=== PATIENT | male | born 1935 | race African-American/Black ===

== ENCOUNTER 2017-09-16 11:26 | Inpatient (IN) | payer SELFPAY ==
[~2017-09-16] VITALS: Ht 182.9 cm; Wt 73.0 kg
[2017-09-16 12:08] LABS: BASOPHILS % 0.4 % (0.0-2.0); EOSINOPHILS % 1.1 % (0.0-5.0); HEMATOCRIT. 43.5 % (42.0-52.0); HEMOGLOBIN. 14.8 g/dL (14.0-18.0); LYMPHOCYTES % 25.2 % (20.0-50.0); MEAN CORPUSCULAR HEMOGLOBIN 28.5 pg (28.0-32.0); MEAN CORPUSCULAR VOLUME 83.8 fL (80.0-94.0); MEAN PLATELET VOLUME 8.6 fl (7.4-10.4); NEUTROPHILS % 63.3 % (40.0-76.0); PLATELET 237 x1000/uL (130-400); RED BLOOD CELL COUNT 5.19 mill/uL (4.7-6.1); RED CELL DISTRIBUTION WIDTH 13.3 % (11.6-14.6)
[2017-09-16 12:12] LABS: CHLORIDE 100 mEq/L (98-107)
[2017-09-16 12:16] LABS: INR 1.1; PARTIAL THROMBOPLASTIN TIME 28.6 sec (23.4-31.0)
[2017-09-16 14:49] LABS: CLARITY URINE CLEAR (CLEAR); COLOR URINE YELLOW (YELLOW); KETONES URINE NEGATIVE (NEGATIVE); LEUKOCYTE ESTERASE URINE NEGATIVE (NEGATIVE); NITRITE URINE NEGATIVE (NEGATIVE); OCCULT BLOOD URINE NEGATIVE (NEGATIVE); PROTEIN URINE NEGATIVE (NEGATIVE); SPECIFIC GRAVITY URINE 1.011 (1.005-1.030); UROBILINOGEN URINE 0.2 E.U./dL (0.2-1.0)
[2017-09-16] MEDS ORDERED: ASPIRIN 325MG TABLET PO ONE (15:00)
[2017-09-16] MEDS ORDERED: KETOROLAC 15MG/ML VIAL IV ONE (18:00)
[2017-09-16] MEDS ORDERED: DOCUSATE SODIUM 100MG CAPSULE PO PRN (22:30)
[2017-09-16] MEDS ORDERED: DIPHENHYDRAMINE 50MG/ML VIAL IV PRN (22:30)
[2017-09-16] MEDS ORDERED: IPRATROPIUM/ALBUTEROL 0.5-3(2.5)MG/3ML NEB INH PRN (22:30)
[2017-09-16] MEDS ORDERED: ONDANSETRON HCL 4MG/2ML VIAL IV PRN (22:30)
[2017-09-16] MEDS ORDERED: ACETAMINOPHEN 650MG/20.3ML UDC GT PRN (22:30)
[2017-09-16] MEDS ORDERED: ACETAMINOPHEN 650MG SUPP PR PRN (22:30)
[2017-09-16] MEDS ORDERED: ACETAMINOPHEN 325MG TABLET PO PRN (22:30)
[2017-09-16] MEDS ORDERED: GUAIFENESIN 200MG/10ML SUGAR FREE UDC PO PRN (22:30)
[2017-09-16] MEDS ORDERED: MAGNESIUM/ALUMINUM HYDROXIDE/SIMETHICONE 30ML UDC PO PRN (22:30)
[2017-09-16] MEDS ORDERED: CLONIDINE 0.1MG TABLET PO PRN (22:30)
[2017-09-16] MEDS ORDERED: HYDROCODONE/ACETAMINOPHEN 5/325MG TABLET PO PRN (22:30)
[2017-09-16] MEDS ORDERED: DEXTROSE 50% WATER 50ML SYRINGE IV PRN (22:30)
[2017-09-16] MEDS ORDERED: NA PHOS,M-B/NA PHOS,DI-BA ENEMA 118ML PR PRN (22:30)
[2017-09-16] MEDS ORDERED: BLOOD SUGAR DIAGNOSTIC STRIP TEST NR (22:53)
[2017-09-16] MEDS ORDERED: INSULIN LISPRO 100 UNITS/ML SUBCUT NR (22:53)
[2017-09-17] VITALS: BP 119/77
[2017-09-17 04:00] VITALS: BP 139/86
[2017-09-17] MEDS: SODIUM CHLORIDE 0.9% 1,000 ML IV SCH (04:10)
[2017-09-17] MEDS: SODIUM CHLORIDE 0.9% INJ 3ML FLUSH IVF SCH ×3 (05:59→21:25)
[2017-09-17] MEDS: BLOOD SUGAR DIAGNOSTIC STRIP TEST SCH ×4 (06:02→21:25)
[2017-09-17] MEDS: INSULIN LISPRO 100 UNITS/ML SUBCUT SCH ×4 (06:06→21:25)
[2017-09-17 06:39] LABS: BASOPHILS % 0.5 % (0.0-2.0); EOSINOPHILS % 2.7 % (0.0-5.0); HEMATOCRIT. 42.6 % (42.0-52.0); HEMOGLOBIN. 14.3 g/dL (14.0-18.0); MEAN CORPUSCULAR HEMOGLOBIN 28.3 pg (28.0-32.0); MEAN CORPUSCULAR VOLUME 84.1 fL (80.0-94.0); MEAN PLATELET VOLUME 9.1 fl (7.4-10.4); MONOCYTES % 9.9 % (2.0-8.0); NEUTROPHILS % 57.9 % (40.0-76.0); PLATELET 248 x1000/uL (130-400); RED BLOOD CELL COUNT 5.06 mill/uL (4.7-6.1)
[2017-09-17 07:41] LABS: CHLORIDE 105 mEq/L (98-107)
[2017-09-17 07:52] LABS: LDL CHOLESTEROL 101 mg/dL (5-100)
[2017-09-17 07:53] LABS: CREATINE KINASE 148 IU/L (39-308); HDL CHOLESTEROL 47 mg/dL (40-59)
[2017-09-17 07:57] LABS: CREATINE KINASE MB FRACTION 1.5 ng/mL (0.5-3.6)
[2017-09-17 08:00] VITALS: BP 157/91
[2017-09-17] MEDS: ENOXAPARIN 40MG/0.4ML SYR SUBCUT SCH (09:29)
[2017-09-17] MEDS ORDERED: TAMS-11 PO (10:18)
[2017-09-17] MEDS ORDERED: METF100092 MT (10:18)
[2017-09-17] MEDS ORDERED: LISI2.5T47 MT (10:18)
[2017-09-17 12:00] VITALS: BP 149/81
[2017-09-17 14:13] LABS: CLARITY URINE CLEAR (CLEAR); COLOR URINE YELLOW (YELLOW); KETONES URINE NEGATIVE (NEGATIVE); LEUKOCYTE ESTERASE URINE NEGATIVE (NEGATIVE); NITRITE URINE NEGATIVE (NEGATIVE); OCCULT BLOOD URINE NEGATIVE (NEGATIVE); PH URINE 5.5 (4.5-8.0); PROTEIN URINE NEGATIVE (NEGATIVE); SPECIFIC GRAVITY URINE 1.016 (1.005-1.030); UROBILINOGEN URINE 0.2 E.U./dL (0.2-1.0)
[2017-09-17 14:39] LABS: METHADONE URINE SCREEN NEGATIVE (NEGATIVE); OPIATES URINE SCREEN NEGATIVE (NEGATIVE); PHENCYCLIDINE URINE SCREEN NEGATIVE (NEGATIVE)
[2017-09-17 14:40] LABS: *AMPHETAMINES SCREEN URINE NEGATIVE (NEGATIVE); *BARBITURATES SCREEN URINE NEGATIVE (NEGATIVE); *BENZODIAZEPINES SCREEN URINE NEGATIVE (NEGATIVE); *COCAINE SCREEN URINE NEGATIVE (NEGATIVE); CANNABINOID URINE SCREEN NEGATIVE (NEGATIVE)
[2017-09-17] MEDS ORDERED: CLOPIDOGREL 75MG TABLET PO NR (14:45)
[2017-09-17 16:00] VITALS: BP 160/100
[2017-09-17] MEDS ORDERED: TAMSULOSIN HCL 0.4MG SR CAPSULE PO NR (16:00)
[2017-09-17 16:01] LABS: CREATINE KINASE 165 IU/L (39-308)
[2017-09-17 16:02] LABS: CREATINE KINASE MB FRACTION 1.9 ng/mL (0.5-3.6)
[2017-09-17] MEDS ORDERED: MORPHINE SULFATE 4 MG/ML CPJ (NOT FOR IM USE) IV NR (18:00)
[2017-09-17 20:00] VITALS: BP 112/55
[2017-09-17] MEDS ORDERED: ATORVASTATIN CALCIUM 10MG TABLET PO SCH ×2 (21:00)
[2017-09-18] VITALS: BP 139/89
[2017-09-18 04:00] VITALS: BP 138/70
[2017-09-18] MEDS: SODIUM CHLORIDE 0.9% INJ 3ML FLUSH IVF SCH ×2 (05:07→14:00)
[2017-09-18] MEDS: BLOOD SUGAR DIAGNOSTIC STRIP TEST SCH ×3 (06:16→17:10)
[2017-09-18] MEDS: INSULIN LISPRO 100 UNITS/ML SUBCUT SCH ×3 (06:21→17:40)
[2017-09-18 08:00] VITALS: BP 118/63
[2017-09-18] MEDS: SODIUM CHLORIDE 0.9% 1,000 ML IV SCH (08:33)
[2017-09-18] MEDS: METFORMIN HCL 500MG TABLET PO SCH ×2 (08:35→17:40)
[2017-09-18] MEDS: ENOXAPARIN 40MG/0.4ML SYR SUBCUT SCH (08:35)
[2017-09-18] MEDS ORDERED: TAMSULOSIN HCL 0.4MG SR CAPSULE PO SCH (09:00)
[2017-09-18] MEDS ORDERED: CLOPIDOGREL 75MG TABLET PO SCH (09:00)
[2017-09-18 12:00] VITALS: BP 144/84
[2017-09-18] MEDS ORDERED: CLOP75TA16 MT (13:01)
[2017-09-18] MEDS ORDERED: ATOR20TA MT (13:02)
[2017-09-18 15:25] LABS: BASOPHILS % 0.4 % (0.0-2.0); EOSINOPHILS % 0.7 % (0.0-5.0); HEMATOCRIT. 42.7 % (42.0-52.0); HEMOGLOBIN. 14.4 g/dL (14.0-18.0); LYMPHOCYTES % 25.7 % (20.0-50.0); MEAN CORPUSCULAR HEMOGLOBIN 28.6 pg (28.0-32.0); MEAN CORPUSCULAR VOLUME 84.9 fL (80.0-94.0); MEAN PLATELET VOLUME 8.9 fl (7.4-10.4); NEUTROPHILS % 63.2 % (40.0-76.0); PLATELET 248 x1000/uL (130-400); RED BLOOD CELL COUNT 5.02 mill/uL (4.7-6.1); RED CELL DISTRIBUTION WIDTH 13.4 % (11.6-14.6)
[2017-09-18 15:31] LABS: CHLORIDE 103 mEq/L (98-107)
[2017-09-18 16:00] VITALS: BP 124/69
[2017-09-18 16:30] VITALS: BP 124/69
== END 2017-09-18 18:45 | disposition home or self-care (01) | DRG 45 ==
LOC: ER 12:08 → 8WST 15:28 → EDBEDREQ 15:51 → ENRESERV 19:32
PROVIDERS: ADMIT Family Medicine; ATTEND Family Medicine
DX: I63.9 Cerebral infarction, unspecified (principal); E11.65 Type 2 diabetes mellitus with hyperglycemia; G81.94 Hemiplegia, unspecified affecting left nondominant side; N13.8 Other obstructive and reflux uropathy; I10 Essential (primary) hypertension; E78.5 Hyperlipidemia, unspecified; N40.1 Benign prostatic hyperplasia with lower urinary tract symptoms; R33.8 Other retention of urine; Z88.6 Allergy status to analgesic agent; W18.39XA Other fall on same level, initial encounter; Y93.89 Activity, other specified; Y92.89 Other specified places as the place of occurrence of the external cause; Y99.8 Other external cause status; Z86.73 Personal history of transient ischemic attack (TIA), and cerebral infarction without residual deficits
CPT/HCPCS: 36415; 70450; 70551; 80053; 80061; 80305; 81003; 82550; 82553; 82962; 83036; 84484; 85025; 85610; 85730; 93005; 93306; 93880; 96372; 96374; 97162; 97166; 99291; C1893; J1650; J1815; J1885; J2270; J7030; A4315

== ENCOUNTER 2017-12-18 20:01 | Inpatient (IN) | payer MEDICAID, OTHER ==
[~2017-12-18] VITALS: Ht 167.6 cm; Wt 79.4 kg
[~2017-12-18 20:01] MED LIST: ATOR20TA MT; CLOP75TA16 MT; LISI2.5T47 MT; METF100092 MT; TAMS-11 PO
[2017-12-18] MEDS ORDERED: SODIUM CHLORIDE 0.9% 500 ML IV ONE (20:30)
[2017-12-18 20:53] LABS: BG BASE EXCESS 0.8 mmol/L (-2.0-2.0); BG CARBOXYHEMOGLOBIN 1.1 % (0.5-1.5); BG DEOXYHEMOGLOBIN 4.4 % (0.0-5.0); BG FRACTION INSPIRED OXYGEN 21; BG HCO3 ACT 25.4 mmol/L (22.0-26.0); BG METHEMOGLOBIN 0.4 % (0.0-1.5); BG OXYGEN SATURATION 95.5 % (92.0-98.5); BG OXYHEMOGLOBIN 94.1 % (94.0-97.0); BG PCO2 40.7 mmHg (35.0-45.0); BG PH 7.413 (7.350-7.450); BG PO2 78.3 mmHg (75.0-100.0); BG SAMPLE SITE RIGHT BRACHIAL; BG TOTAL HEMOGLOBIN 14.3 g/dL (12.0-18.0); BG VENT MODE ROOM AIR
[2017-12-18 21:28] LABS: BASOPHILS % 0.4 % (0.0-2.0); EOSINOPHILS % 1.8 % (0.0-5.0); HEMATOCRIT. 43.1 % (42.0-52.0); HEMOGLOBIN. 14.4 g/dL (14.0-18.0); LYMPHOCYTES % 26.3 % (20.0-50.0); MEAN CORPUSCULAR HEMOGLOBIN 28.3 pg (28.0-32.0); MEAN CORPUSCULAR VOLUME 84.4 fL (80.0-94.0); MEAN PLATELET VOLUME 7.6 fl (7.4-10.4); MONOCYTES % 8.6 % (2.0-8.0); NEUTROPHILS % 62.9 % (40.0-76.0); PLATELET 404 x1000/uL (130-400); RED BLOOD CELL COUNT 5.11 mill/uL (4.7-6.1)
[2017-12-18 21:36] LABS: CHLORIDE 97 mEq/L (98-107); ETHANOL BLOOD < 10 mg/dL
[2017-12-18 21:45] LABS: AMMONIA 38 uMol/L (<32)
[2017-12-18 22:50] LABS: CLARITY URINE CLEAR (CLEAR); COLOR URINE YELLOW (YELLOW); KETONES URINE NEGATIVE (NEGATIVE); LEUKOCYTE ESTERASE URINE 1+ (NEGATIVE); NITRITE URINE NEGATIVE (NEGATIVE); OCCULT BLOOD URINE 3+ (NEGATIVE); PROTEIN URINE NEGATIVE (NEGATIVE); SPECIFIC GRAVITY URINE 1.007 (1.005-1.030); UROBILINOGEN URINE 0.2 E.U./dL (0.2-1.0)
[2017-12-18 23:02] LABS: *AMPHETAMINES SCREEN URINE NEGATIVE (NEGATIVE); *BARBITURATES SCREEN URINE NEGATIVE (NEGATIVE); *BENZODIAZEPINES SCREEN URINE NEGATIVE (NEGATIVE); *COCAINE SCREEN URINE NEGATIVE (NEGATIVE)
[2017-12-18 23:03] LABS: CANNABINOID URINE SCREEN NEGATIVE (NEGATIVE); METHADONE URINE SCREEN NEGATIVE (NEGATIVE); OPIATES URINE SCREEN NEGATIVE (NEGATIVE); PHENCYCLIDINE URINE SCREEN NEGATIVE (NEGATIVE)
[2017-12-18] MEDS ORDERED: SODIUM CHLORIDE 0.9% 1000ML BAG (SEPSIS BOLUS) IV ONE (23:30)
[2017-12-18] MEDS ORDERED: CEFTRIAXONE 1 G PREMIX 50 ML IV ONE (23:30)
[2017-12-19 04:00] VITALS: BP 125/65
[2017-12-19 04:13] VITALS: BP 125/65
[2017-12-19] MEDS ORDERED: DIPHENHYDRAMINE 50MG/ML VIAL IV PRN (06:45)
[2017-12-19] MEDS ORDERED: ONDANSETRON HCL 4MG/2ML INJ IV PRN (06:45)
[2017-12-19] MEDS ORDERED: ACETAMINOPHEN 325MG TABLET PO PRN (06:45)
[2017-12-19] MEDS ORDERED: LORAZEPAM 2MG/ML CPJ IV PRN (06:45)
[2017-12-19] MEDS ORDERED: DEXTROSE 50% WATER 50ML SYRINGE IV PRN (06:45)
[2017-12-19] MEDS ORDERED: CLONIDINE 0.1MG TABLET PO PRN (06:45)
[2017-12-19] MEDS ORDERED: HYDROCODONE/ACETAMINOPHEN 5/325MG TABLET PO PRN (06:45)
[2017-12-19] MEDS ORDERED: GUAIFENESIN 200MG/10ML SUGAR FREE UDC PO PRN (06:45)
[2017-12-19] MEDS ORDERED: IPRATROPIUM/ALBUTEROL 0.5-3(2.5)MG/3ML NEB INH PRN (06:45)
[2017-12-19] MEDS ORDERED: HYDROMORPHONE HCL/PF 2MG/ML CPJ IV PRN (06:45)
[2017-12-19] MEDS ORDERED: MAGNESIUM/ALUMINUM HYDROXIDE/SIMETHICONE 30ML UDC PO PRN (06:45)
[2017-12-19 08:09] VITALS: BP 123/65
[2017-12-19] MEDS: INSULIN LISPRO 100 UNITS/ML SUBCUT SCH ×4 (08:10→21:41)
[2017-12-19] MEDS: SODIUM CHLORIDE 0.45% 1,000 ML IV SCH (08:23)
[2017-12-19] MEDS: LEVOFLOXACIN 500MG PREMIX 100 ML IV SCH (08:23)
[2017-12-19] MEDS: ENOXAPARIN 40MG/0.4ML SYR SUBCUT SCH (08:24)
[2017-12-19] MEDS: BLOOD SUGAR DIAGNOSTIC STRIP TEST SCH ×4 (08:24→21:07)
[2017-12-19] MEDS ORDERED: NA PHOS,M-B/NA PHOS,DI-BA ENEMA 118ML PR PRN (09:00)
[2017-12-19] MEDS ORDERED: ASPIRIN 81MG EC TABLET PO SCH (09:00)
[2017-12-19 09:33] LABS: CHLORIDE 103 mEq/L (98-107)
[2017-12-19 12:00] VITALS: BP 111/62
[2017-12-19] MEDS: CLOPIDOGREL 75MG TABLET PO SCH (12:56)
[2017-12-19 16:00] VITALS: BP 120/66
[2017-12-19 20:00] VITALS: BP 132/73
[2017-12-20] VITALS: BP 125/71
[2017-12-20 04:00] VITALS: BP 130/70
[2017-12-20] MEDS: SODIUM CHLORIDE 0.45% 1,000 ML IV SCH (04:07)
[2017-12-20] MEDS: DOCUSATE SODIUM 100MG CAPSULE PO PRN ×2 (04:07→09:54)
[2017-12-20] MEDS: BLOOD SUGAR DIAGNOSTIC STRIP TEST SCH ×4 (05:06→21:11)
[2017-12-20 06:46] LABS: BASOPHILS % 0.4 % (0.0-2.0); EOSINOPHILS % 2.6 % (0.0-5.0); HEMATOCRIT. 37.9 % (42.0-52.0); HEMOGLOBIN. 12.7 g/dL (14.0-18.0); LYMPHOCYTES % 31.2 % (20.0-50.0); MEAN CORPUSCULAR HEMOGLOBIN 27.9 pg (28.0-32.0); MEAN CORPUSCULAR VOLUME 83.6 fL (80.0-94.0); MEAN PLATELET VOLUME 7.1 fl (7.4-10.4); MONOCYTES % 9.4 % (2.0-8.0); NEUTROPHILS % 56.4 % (40.0-76.0); PLATELET 331 x1000/uL (130-400); RED BLOOD CELL COUNT 4.54 mill/uL (4.7-6.1); RED CELL DISTRIBUTION WIDTH 14.2 % (11.6-14.6)
[2017-12-20 07:24] LABS: CHLORIDE 102 mEq/L (98-107)
[2017-12-20 07:34] LABS: HDL CHOLESTEROL 44 mg/dL (40-59); LDL CHOLESTEROL 23 mg/dL (5-100); T4 FREE 1.35 ng/dL (0.76-1.46)
[2017-12-20 08:00] VITALS: BP 128/70
[2017-12-20] MEDS: INSULIN LISPRO 100 UNITS/ML SUBCUT SCH ×4 (08:02→21:00)
[2017-12-20 09:27] LABS: INR 1.1; PARTIAL THROMBOPLASTIN TIME 28.5 sec (23.4-31.0); PROTHROMBIN TIME 11.4 sec (9.1-11.1)
[2017-12-20] MEDS: CLOPIDOGREL 75MG TABLET PO SCH (09:54)
[2017-12-20] MEDS: ENOXAPARIN 40MG/0.4ML SYR SUBCUT SCH (09:54)
[2017-12-20] MEDS: LEVOFLOXACIN 500MG PREMIX 100 ML IV SCH (09:54)
[2017-12-20 12:00] VITALS: BP 126/68
[2017-12-20 16:00] VITALS: BP 128/66
[2017-12-20 20:00] VITALS: BP 126/67
[2017-12-21] VITALS: BP 128/69
[2017-12-21 04:00] VITALS: BP 139/72
[2017-12-21] MEDS: SODIUM CHLORIDE 0.45% 1,000 ML IV SCH (04:53)
[2017-12-21] MEDS: BLOOD SUGAR DIAGNOSTIC STRIP TEST SCH ×4 (04:53→20:31)
[2017-12-21 08:00] VITALS: BP 135/68
[2017-12-21] MEDS: INSULIN LISPRO 100 UNITS/ML SUBCUT SCH ×4 (08:10→20:31)
[2017-12-21] MEDS: CLOPIDOGREL 75MG TABLET PO SCH (11:19)
[2017-12-21] MEDS: ENOXAPARIN 40MG/0.4ML SYR SUBCUT SCH (11:20)
[2017-12-21] MEDS: LEVOFLOXACIN 500MG PREMIX 100 ML IV SCH (11:20)
[2017-12-21 16:00] VITALS: BP 132/66
[2017-12-21] MEDS: DOCUSATE SODIUM 100MG CAPSULE PO PRN (18:34)
[2017-12-21 20:00] VITALS: BP 118/65
[2017-12-22] VITALS: BP 120/67
[2017-12-22 04:00] VITALS: BP 130/72
[2017-12-22] MEDS: SODIUM CHLORIDE 0.45% 1,000 ML IV SCH (04:24)
[2017-12-22] MEDS: BLOOD SUGAR DIAGNOSTIC STRIP TEST SCH ×2 (07:23→12:35)
[2017-12-22] MEDS: INSULIN LISPRO 100 UNITS/ML SUBCUT SCH ×2 (07:23→12:35)
[2017-12-22 08:00] VITALS: BP 122/68
[2017-12-22] MEDS: ENOXAPARIN 40MG/0.4ML SYR SUBCUT SCH (09:15)
[2017-12-22] MEDS: CLOPIDOGREL 75MG TABLET PO SCH (09:15)
[2017-12-22] MEDS: LEVOFLOXACIN 500MG PREMIX 100 ML IV SCH (09:16)
[2017-12-22] MEDS: DOCUSATE SODIUM 100MG CAPSULE PO PRN (09:25)
[2017-12-22 12:20] VITALS: BP 140/77
[2017-12-22 12:57] VITALS: BP 140/77
== END 2017-12-22 15:55 | disposition home or self-care (01) | DRG 720 ==
LOC: ER 20:23 → 7WST 12-19 00:29 → EDBEDREQTM 12-19 00:30 → EDBEDREQ 12-19 00:30 → ENRESERV 12-19 02:48
PROVIDERS: ADMIT Internal Medicine; ATTEND Internal Medicine
DX: A41.9 Sepsis, unspecified organism (principal); G93.41 Metabolic encephalopathy; E87.2 Acidosis; E11.65 Type 2 diabetes mellitus with hyperglycemia; I50.9 Heart failure, unspecified; R65.20 Severe sepsis without septic shock; N39.0 Urinary tract infection, site not specified; E78.5 Hyperlipidemia, unspecified; E86.0 Dehydration; F17.200 Nicotine dependence, unspecified, uncomplicated; I11.0 Hypertensive heart disease with heart failure; N40.0 Benign prostatic hyperplasia without lower urinary tract symptoms; Z79.02 Long term (current) use of antithrombotics/antiplatelets; Z79.84 Long term (current) use of oral hypoglycemic drugs; Z86.73 Personal history of transient ischemic attack (TIA), and cerebral infarction without residual deficits; Z88.9 Allergy status to unspecified drugs, medicaments and biological substances
CPT/HCPCS: 36415; 36600; 51702; 71045; 80048; 80061; 80305; 80307; 80329; 82140; 82375; 82805; 82962; 83605; 83880; 84439; 84443; 84484; 86850; 86900; 93005; 93970; 96361; 96365; 97110; 97116; 97163; 97166; 97530; 97535; 99291; 99406; G0482; J0696; J1170; J1650; J1815; J1956; J7030; J7040; A4315

== ENCOUNTER 2018-01-13 15:00 | Inpatient (IN) | payer MEDICAID, OTHER ==
[~2018-01-13] VITALS: Ht 167.6 cm; Wt 86.2 kg
[2018-01-13 15:41] LABS: INR 1.2; PROTHROMBIN TIME 12.5 sec (9.1-11.1)
[2018-01-13 15:43] LABS: CHLORIDE 94 mEq/L (98-107)
[2018-01-13 15:47] LABS: HEMATOCRIT. 40.9 % (42.0-52.0); MEAN CORPUSCULAR HEMOGLOBIN 28.8 pg (28.0-32.0); MEAN PLATELET VOLUME 7.8 fl (7.4-10.4); PLATELET 169 x1000/uL (130-400); RED BLOOD CELL COUNT 4.88 mill/uL (4.7-6.1); RED CELL DISTRIBUTION WIDTH 14.6 % (11.6-14.6)
[2018-01-13 15:53] LABS: ETHANOL BLOOD < 10 mg/dL; LDL CHOLESTEROL 16 mg/dL (5-100)
[2018-01-13] MEDS ORDERED: SODIUM CHLORIDE 0.45% 500 ML IV ONE (16:00)
[2018-01-13 16:17] LABS: PLATELET ESTIMATE NORMAL
[2018-01-13 16:54] LABS: CLARITY URINE TURBID (CLEAR); COLOR URINE YELLOW (YELLOW); KETONES URINE TRACE (NEGATIVE); LEUKOCYTE ESTERASE URINE 3+ (NEGATIVE); NITRITE URINE NEGATIVE (NEGATIVE); OCCULT BLOOD URINE 3+ (NEGATIVE); PROTEIN URINE 1+ (NEGATIVE); SPECIFIC GRAVITY URINE 1.013 (1.005-1.030); UROBILINOGEN URINE 0.2 E.U./dL (0.2-1.0)
[2018-01-13 17:20] LABS: *AMPHETAMINES SCREEN URINE NEGATIVE (NEGATIVE); *BARBITURATES SCREEN URINE NEGATIVE (NEGATIVE); *BENZODIAZEPINES SCREEN URINE NEGATIVE (NEGATIVE); *COCAINE SCREEN URINE NEGATIVE (NEGATIVE); CANNABINOID URINE SCREEN NEGATIVE (NEGATIVE); METHADONE URINE SCREEN NEGATIVE (NEGATIVE); OPIATES URINE SCREEN NEGATIVE (NEGATIVE); PHENCYCLIDINE URINE SCREEN NEGATIVE (NEGATIVE)
[2018-01-13] MEDS ORDERED: MAGNESIUM 1 G PREMIX 100 ML IV ONE (19:00)
[2018-01-13] MEDS ORDERED: POTASSIUM CHLORIDE INJ 40 MEQ in DEXT 5% WATER 500 ML IV ONE (19:00)
[2018-01-14] VITALS (7 sets, daily range): BP systolic 84–101; BP diastolic 48–64
[2018-01-14] MEDS: BLOOD SUGAR DIAGNOSTIC STRIP TEST SCH ×4 (07:40→21:00)
[2018-01-14] MEDS: INSULIN LISPRO 100 UNITS/ML SUBCUT SCH ×4 (08:10→21:00)
[2018-01-14] MEDS: TAMSULOSIN HCL 0.4MG SR CAPSULE PO SCH (09:00)
[2018-01-14] MEDS ORDERED: LISINOPRIL 2.5MG TABLET PO SCH (09:00)
[2018-01-14] MEDS: CLOPIDOGREL 75MG TABLET PO SCH (09:17)
[2018-01-14] MEDS: CEFTRIAXONE 1 G PREMIX 50 ML IV SCH (09:19)
[2018-01-14] MEDS: SODIUM CHLORIDE 0.9% 1,000 ML IV SCH (09:19)
[2018-01-14] MEDS: DEXTROSE 50% WATER 50ML SYRINGE IV PRN (09:35)
[2018-01-14] MEDS: ACETAMINOPHEN 325MG TABLET PO PRN (14:09)
[2018-01-14 14:14] LABS: HEMATOCRIT 34.7 % (42.0-52.0); MEAN CORPUSCULAR HEMOGLOBIN 28.4 pg (28.0-32.0); MEAN CORPUSCULAR VOLUME 82.3 fL (80.0-94.0); PLATELET 144 x1000/uL (130-400); RED BLOOD CELL COUNT 4.21 mill/uL (4.7-6.1)
[2018-01-14 14:22] LABS: CHLORIDE 100 mEq/L (98-107)
[2018-01-14 14:29] LABS: HDL CHOLESTEROL 48 mg/dL (40-59); LDL CHOLESTEROL 12 mg/dL (5-100)
[2018-01-14] MEDS: ENOXAPARIN 40MG/0.4ML SYR SUBCUT SCH (17:59)
[2018-01-14] MEDS ORDERED: ENOXAPARIN 100MG/ML SYR SUBCUT SCH (18:00)
[2018-01-14] MEDS ORDERED: ATORVASTATIN CALCIUM 20MG TABLET PO SCH (21:00)
[2018-01-15] VITALS: BP 103/63
[2018-01-15] MEDS: ACETAMINOPHEN 325MG TABLET PO PRN (02:42)
[2018-01-15 04:00] VITALS: BP 106/59
[2018-01-15] MEDS: SODIUM CHLORIDE 0.9% 1,000 ML IV SCH ×2 (06:13→09:52)
[2018-01-15] MEDS: DEXTROSE 50% WATER 50ML SYRINGE IV PRN (07:03)
[2018-01-15 07:32] LABS: HEMATOCRIT. 37.7 % (42.0-52.0); HEMOGLOBIN. 12.7 g/dL (14.0-18.0); MEAN CORPUSCULAR HEMOGLOBIN 28.1 pg (28.0-32.0); MEAN CORPUSCULAR VOLUME 83.2 fL (80.0-94.0); MEAN PLATELET VOLUME 8.9 fl (7.4-10.4); PLATELET 118 x1000/uL (130-400); RED BLOOD CELL COUNT 4.53 mill/uL (4.7-6.1); RED CELL DISTRIBUTION WIDTH 14.8 % (11.6-14.6)
[2018-01-15 07:37] LABS: CHLORIDE 101 mEq/L (98-107)
[2018-01-15] MEDS: BLOOD SUGAR DIAGNOSTIC STRIP TEST SCH ×4 (07:40→20:52)
[2018-01-15 08:00] VITALS: BP 107/69
[2018-01-15] MEDS: INSULIN LISPRO 100 UNITS/ML SUBCUT SCH ×4 (08:10→20:52)
[2018-01-15] MEDS: CLOPIDOGREL 75MG TABLET PO SCH (09:52)
[2018-01-15] MEDS: TAMSULOSIN HCL 0.4MG SR CAPSULE PO SCH (09:52)
[2018-01-15] MEDS: CEFTRIAXONE 1 G PREMIX 50 ML IV SCH (09:52)
[2018-01-15] MEDS: DEXT 5%/0.9% NACL 1,000 ML IV SCH (10:45)
[2018-01-15 11:40] LABS: PLATELET ESTIMATE SLIGHTLY DECREASED
[2018-01-15 12:00] VITALS: BP 111/68
[2018-01-15] MEDS: MEROPENEM 1,000 MG in SODIUM CHLORIDE 0.9% 100 ML IV SCH (13:19)
[2018-01-15 16:00] VITALS: BP 102/66
[2018-01-15] MEDS: ENOXAPARIN 40MG/0.4ML SYR SUBCUT SCH (18:00)
[2018-01-15 20:00] VITALS: BP 125/75
[2018-01-16 00:05] VITALS: BP 109/60
[2018-01-16] MEDS: DEXT 5%/0.9% NACL 1,000 ML IV SCH ×2 (00:48→12:35)
[2018-01-16] MEDS: MEROPENEM 1,000 MG in SODIUM CHLORIDE 0.9% 100 ML IV SCH ×2 (00:48→12:34)
[2018-01-16 04:00] VITALS: BP 122/71
[2018-01-16] MEDS: BLOOD SUGAR DIAGNOSTIC STRIP TEST SCH ×4 (07:40→22:16)
[2018-01-16] MEDS: INSULIN LISPRO 100 UNITS/ML SUBCUT SCH ×4 (08:10→21:00)
[2018-01-16] MEDS: TAMSULOSIN HCL 0.4MG SR CAPSULE PO SCH (09:00)
[2018-01-16 12:00] VITALS: BP 117/66
[2018-01-16] MEDS: CLOPIDOGREL 75MG TABLET PO SCH (12:21)
[2018-01-16 16:00] VITALS: BP 119/78
[2018-01-16 16:18] LABS: HEMATOCRIT. 36.2 % (42.0-52.0); HEMOGLOBIN. 12.3 g/dL (14.0-18.0); MEAN CORPUSCULAR HEMOGLOBIN 28.4 pg (28.0-32.0); MEAN CORPUSCULAR VOLUME 83.6 fL (80.0-94.0); PLATELET 141 x1000/uL (130-400); RED BLOOD CELL COUNT 4.33 mill/uL (4.7-6.1)
[2018-01-16 16:26] LABS: CHLORIDE 105 mEq/L (98-107)
[2018-01-16 17:04] LABS: PLATELET ESTIMATE NORMAL
[2018-01-16] MEDS: ENOXAPARIN 40MG/0.4ML SYR SUBCUT SCH (18:00)
[2018-01-16] MEDS: DOCUSATE SODIUM 100MG CAPSULE PO SCH (19:15)
[2018-01-16 20:00] VITALS: BP 102/56
[2018-01-16 23:34] VITALS: BP 124/76
[2018-01-17] MEDS: MEROPENEM 1,000 MG in SODIUM CHLORIDE 0.9% 100 ML IV SCH ×2 (00:51→12:42)
[2018-01-17] MEDS: DEXT 5%/0.9% NACL 1,000 ML IV SCH ×2 (00:57→16:05)
[2018-01-17 04:00] VITALS: BP 117/62
[2018-01-17] MEDS: BLOOD SUGAR DIAGNOSTIC STRIP TEST SCH ×4 (07:40→21:00)
[2018-01-17 08:00] VITALS: BP 124/72
[2018-01-17 08:00] LABS: BASOPHILS % 0.3 % (0.0-2.0); EOSINOPHILS % 3.1 % (0.0-5.0); HEMATOCRIT. 34.6 % (42.0-52.0); HEMOGLOBIN. 11.8 g/dL (14.0-18.0); LYMPHOCYTES % 13.1 % (20.0-50.0); MEAN CORPUSCULAR HEMOGLOBIN 28.6 pg (28.0-32.0); MEAN CORPUSCULAR VOLUME 83.7 fL (80.0-94.0); MEAN PLATELET VOLUME 8.7 fl (7.4-10.4); MONOCYTES % 6.9 % (2.0-8.0); NEUTROPHILS % 76.6 % (40.0-76.0); PLATELET 138 x1000/uL (130-400); RED BLOOD CELL COUNT 4.13 mill/uL (4.7-6.1); RED CELL DISTRIBUTION WIDTH 15.3 % (11.6-14.6)
[2018-01-17 08:03] LABS: CHLORIDE 107 mEq/L (98-107)
[2018-01-17] MEDS: INSULIN LISPRO 100 UNITS/ML SUBCUT SCH ×4 (08:10→20:59)
[2018-01-17] MEDS ORDERED: POTASSIUM CHLORIDE 20MEQ TABLET SR PO SCH (08:15)
[2018-01-17] MEDS: CLOPIDOGREL 75MG TABLET PO SCH (08:56)
[2018-01-17] MEDS: DOCUSATE SODIUM 100MG CAPSULE PO SCH (08:56)
[2018-01-17] MEDS: TAMSULOSIN HCL 0.4MG SR CAPSULE PO SCH (08:56)
[2018-01-17] MEDS: ACETAMINOPHEN 325MG TABLET PO PRN (09:18)
[2018-01-17 12:00] VITALS: BP 141/79
[2018-01-17 16:00] VITALS: BP 129/64
[2018-01-17] MEDS: ENOXAPARIN 40MG/0.4ML SYR SUBCUT SCH (18:25)
[2018-01-17 20:00] VITALS: BP 135/68
[2018-01-18] VITALS: BP_SYST 132; BP_SYST 137; BP_DIAS 66
[2018-01-18] MEDS: MEROPENEM 1,000 MG in SODIUM CHLORIDE 0.9% 100 ML IV SCH ×2 (02:27→13:27)
[2018-01-18 04:00] VITALS: BP 138/74
[2018-01-18] MEDS: BLOOD SUGAR DIAGNOSTIC STRIP TEST SCH ×3 (07:31→17:40)
[2018-01-18] MEDS: INSULIN LISPRO 100 UNITS/ML SUBCUT SCH ×3 (09:21→17:58)
[2018-01-18] MEDS: TAMSULOSIN HCL 0.4MG SR CAPSULE PO SCH (09:24)
[2018-01-18] MEDS: CLOPIDOGREL 75MG TABLET PO SCH (09:25)
[2018-01-18] MEDS: DOCUSATE SODIUM 100MG CAPSULE PO SCH (09:25)
[2018-01-18 09:44] LABS: HEMATOCRIT. 35.7 % (42.0-52.0); MEAN CORPUSCULAR HEMOGLOBIN 28.4 pg (28.0-32.0); MEAN CORPUSCULAR VOLUME 84.2 fL (80.0-94.0); MEAN PLATELET VOLUME 8.8 fl (7.4-10.4); PLATELET 143 x1000/uL (130-400); RED BLOOD CELL COUNT 4.24 mill/uL (4.7-6.1); RED CELL DISTRIBUTION WIDTH 15.1 % (11.6-14.6)
[2018-01-18 12:00] VITALS: BP 145/82
[2018-01-18 12:03] LABS: CHLORIDE 108 mEq/L (98-107)
[2018-01-18] MEDS: DEXT 5%/0.9% NACL 1,000 ML IV SCH (13:28)
[2018-01-18 14:07] LABS: PLATELET ESTIMATE NORMAL
[2018-01-18 16:00] VITALS: BP 154/79
[2018-01-18] MEDS: ENOXAPARIN 40MG/0.4ML SYR SUBCUT SCH (18:00)
[2018-01-18 18:04] VITALS: BP 154/79
== END 2018-01-18 19:45 | disposition home or self-care (01) | DRG 720 ==
LOC: ER 15:00 → 7WST 19:13 → EDBEDREQSVC 19:15 → EDBEDREQ 19:15 → ENRESERV 01-14 01:28 → 7WST 01-14 16:59
PROVIDERS: ADMIT Internal Medicine; ATTEND Internal Medicine
PROC: 05HY33Z Insertion of Infusion Device into Upper Vein, Percutaneous Approach (ICD-10-PCS; principal; 2018-01-18)
PROC: B54MZZA Ultrasonography of Right Upper Extremity Veins, Guidance (ICD-10-PCS; 2018-01-18)
DX: A41.51 Sepsis due to Escherichia coli [E. coli] (principal); N17.0 Acute kidney failure with tubular necrosis; G93.41 Metabolic encephalopathy; E44.1 Mild protein-calorie malnutrition; E11.9 Type 2 diabetes mellitus without complications; E87.1 Hypo-osmolality and hyponatremia; E87.8 Other disorders of electrolyte and fluid balance, not elsewhere classified; N39.0 Urinary tract infection, site not specified; E87.6 Hypokalemia; N13.8 Other obstructive and reflux uropathy; N40.1 Benign prostatic hyperplasia with lower urinary tract symptoms; E66.9 Obesity, unspecified; Z68.30 Body mass index [BMI] 30.0-30.9, adult; Z88.6 Allergy status to analgesic agent; I11.9 Hypertensive heart disease without heart failure; I51.7 Cardiomegaly; I69.398 Other sequelae of cerebral infarction; R32 Unspecified urinary incontinence
CPT/HCPCS: 36415; 36569; 70551; 71045; 76770; 76937; 80048; 80061; 80305; 82140; 82947; 82962; 83036; 83721; 83735; 83880; 84484; 85027; 87077; 87186; 92610; 93005; 96361; 96365; 96366; 96367; 97163; 97167; 97530; 97535; 99291; C1725; C1893; G0482; J0696; J1650; J1815; J2185; J3475; J3480; J7030; J7042; J7050; J7060; A4315

== ENCOUNTER 2018-02-27 11:34 | Emergency (ER) | payer MEDICAID ==
[~2018-02-27] VITALS: Ht 172.7 cm; Wt 84.0 kg
[~2018-02-27 11:34] MED LIST changes: -ATOR20TA MT; -LISI2.5T47 MT
[2018-02-27 13:04] LABS: CLARITY URINE CLOUDY (CLEAR); COLOR URINE YELLOW (YELLOW); KETONES URINE NEGATIVE (NEGATIVE); LEUKOCYTE ESTERASE URINE 2+ (NEGATIVE); NITRITE URINE NEGATIVE (NEGATIVE); OCCULT BLOOD URINE 3+ (NEGATIVE); PH URINE 5.5 (4.5-8.0); PROTEIN URINE NEGATIVE (NEGATIVE); SPECIFIC GRAVITY URINE 1.012 (1.005-1.030); UROBILINOGEN URINE 0.2 E.U./dL (0.2-1.0)
[2018-02-27 15:45] VITALS: BP 128/68
== END 2018-02-27 16:01 | disposition home or self-care (01) ==
LOC: ER 11:34
DX: N39.0 Urinary tract infection, site not specified (principal); R33.9 Retention of urine, unspecified; I10 Essential (primary) hypertension; E11.9 Type 2 diabetes mellitus without complications; Z46.6 Encounter for fitting and adjustment of urinary device; Z88.6 Allergy status to analgesic agent
CPT/HCPCS: 51702; 87077; 87186; 99284; A4315